=== PATIENT | male | born 1960 | race Caucasian/White ===

== ENCOUNTER 2016-03-10 15:57 | Emergency (ER) | payer OTHER ==
[~2016-03-10] VITALS: Ht 182.9 cm; Wt 69.6 kg
[~2016-03-10 15:57] MED LIST: ABILIFY2 MG PO; ALEVE220 M2 PO; ALEVE220 MG PO; AMLODIPINE BES2.5 MG PO; ASCORBIC ACID100 MG PO; AUGMENTIN875 MG PO; B-123000 MCG PO; BACTRIM,SEPT1 TABLET PO; BENICAR40 MG PO; BUPROPION XL300 MG PO; BUSPAR15 MG PO; BUSPAR5 MG PO; CARDIZEM CD,CA120 MG PO; CARDIZEM CD120 MG PO; CARDIZEM120 MG PO; CARDIZEM60 MG PO; CHLORDIAZEPOXID25 MG PO; CIALIS10 MG PO; CIPRO500 MG PO; CLEOCIN300 MG PO; CLONAZEPAM0.5 MG PO; CYANOCOBALAM1000 MCG PO; DAILY VITAMIN1 EAC8 PO; DAILY VITE1 EAC1 PO; DEXILANT60 MG PO; DIAZEPAM5 MG PO; DILAUDID1 MG/ML IV; DILAUDID2 MG PO; DOLOPHINE HCL10 MG PO; DOXAZOSIN MESYLA1 MG PO; DURAGESIC12 MCG TD; FAMOTIDINE40 MG PO; FENTANYL1 EAC1 TD; FLAGYL500 MG PO; FLOMAX0.4 MG PO; FOLIC ACID1 MG PO; Folvite PO; GLUCOPHAGE1000 MG PO; GLUCOPHAGE500 MG PO; GLUCOPHAGE850 MG PO; Glucophage PO; HARVONI 90-4001 EACH PO; HEPARIN SO5000 UNITS SC; HYDROCHLOROTHIA25 MG; Habitrol,Nicoderm CQ TD; KEFLEX500 MG PO; LANTUS 10100 UNITS/ SC; LANTUS 3 M100 UNITS1 SC; LISINOPRIL-HCT1 EAC3 PO; LISINOPRIL2.5 MG PO; LISINOPRIL20 MG PO; MELOXICAM15 MG PO; METFORMIN HCL500 MG PO; METFORMIN HCL850 MG PO; METHADONE10 MG PO; MIRALAX17 GM PO; MULTI VITAMIN1 EACH PO; MULTI-VITAMIN; MULTIVITAMIN; MULTIVITAMIN1 EAC2 PO; NICORELIEF2 MG BC; NICOTINE PATCH1 EAC2 TD; NOVOLOG 10100 UNITS/ SC; NOVOLOG PE100 UNITS/ SC; Norvasc PO; OMEPRAZOLE40 M1 PO; ONDANSETRON4 MG/2 ML IV; OXYCODONE HCL10 MG PO; OXYCODONE HCL15 MG PO; OXYCODONE HCL5 MG PO; OXYCODONE10 MG; OXYCONTIN10 MG PO; OXYCONTIN15 MG PO; PANCRELIPASE 51 EACH PO; PERCOCET 5/31 TABLET PO; PREDNISONE50 MG PO; PRILOSEC40 MG PO; PROTONIX IV40 MG IV; PROTONIX40 MG PO; PROVENTIL,2.5 MG/3 M IH; Prevacid PO; Proventil,Ventolin H IH; ROXICODONE5 MG PO; SERTRALINE HCL50 MG PO; SILVADENE20 GM TP; SOMA350 MG PO; SUCRALFATE1 GM/10 ML PO; SYMBICORT60 INHALAT IH; TRAZODONE HCL50 MG PO; Thiamine,Vitamin B1 PO; ULTRAM50 MG PO; VALIUM5 MG PO; VENTOLIN HFA18 GM IH; VIAGRA100 MG PO; VICODIN 5-3001 EACH PO; VIOKACE 10,4401 EACH PO; VIOKACE 20,8801 EACH PO; VITAMIN B-1100 MG PO; VOLTAREN75 MG PO; WELLBUTRIN XL150 MG PO; ZANTAC150 MG PO; ZENPEP DR 20,01 EACH PO; ZESTRIL,PRINIVI40 MG PO; ZESTRIL20 MG PO; ZOFRAN ODT4 MG PO; ZOFRAN4 MG PO; ZOLPIDEM TARTRAT5 MG PO; ZYRTEC10 M2 PO; [UNRECOGNIZED DRUG - OTHER] PO; oxyCODONE PO
[2016-03-10 17:02] LABS: HEMATOCRIT 38.7 % (38.0-50.0); MCH 29.7 PG (29.0-34.0); MCHC 34.9 G/DL (30.0-36.0); MCV 85.2 FL (86-99); MEAN PLAT.VOLUME 9.7 uM^3 (9.0-12.4); PLATELET COUNT 263 K/uL (156-360); RBC DIS.WIDTH-SD 42.4 % (39-53); RED BLOOD COUNT 4.54 M/uL (4.00-5.50); WHITE BLOOD COUNT 10.2 K/uL (4.1-10.2)
[2016-03-10 17:10] LABS: CHLORIDE 101 mEq/L (99-109); POTASSIUM 4.6 mEq/L (3.7-5.4); SODIUM 133 mEq/L (136-147)
[2016-03-10 17:14] LABS: ANION GAP 10 MEQ/L (2-14); GLUCOSE 414 mg/dL (70-99)
[2016-03-10 17:15] LABS: TOTAL BILIRUBIN 0.3 mg/dL (0.0-1.0)
[2016-03-10 17:16] LABS: ALKALINE PHOSPHATASE 189 IU/L (3-129); GFR ESTIMATE (CALCULATED) > 59 mL/min/
[2016-03-10 17:17] LABS: UREA NITROGEN (BUN) 12 mg/dL (9-23)
[2016-03-10 21:40] LABS: POINT-OF-CARE METER ID UU13113702
[2016-03-10 21:46] LABS: ADD MIUA? YES; BILIRUBIN NEGATIVE; BLOOD NEGATIVE; COLOR YELLOW ((YELLOW)); GLUCOSE (STRIP) >=1000; KETONES NEGATIVE; LEUKOCYTES NEGATIVE; NITRITE NEGATIVE; PROTEIN (STRIP) 100; SPECIFIC GRAVITY 1.032 (1.000-1.030); UROBILINOGEN 0.2 MG/DL (0.2-1.0)
[2016-03-10 22:49] LABS: LIPASE 7 U/L (1.0-51.0)
[2016-03-10 22:49] LABS: BACTERIA NONE SEEN; CASTS NONE SEEN /LPF; CRYSTALS NONE SEEN; EPITHELIAL CELLS NONE SEEN; MUCUS NONE SEEN; RED BLOOD CELLS 0-5 /HPF (0-5); UCUL ADDED? NO; WHITE BLOOD CELLS 0-5 /HPF (0-5)
[2016-03-11] MEDS ORDERED: PERCOCET 5/31 TABLET PO (00:13)
[2016-03-11] MEDS ORDERED: REGLAN10 MG PO (00:13)
[2016-03-11 00:39] VITALS: BP 142/74
== END 2016-03-11 00:56 | disposition home or self-care (01) ==
LOC: EME 15:57
PROVIDERS: Emergency Medicine
DX: R10.10 Upper abdominal pain, unspecified (principal); G89.4 Chronic pain syndrome; J44.9 Chronic obstructive pulmonary disease, unspecified; I10 Essential (primary) hypertension; F17.200 Nicotine dependence, unspecified, uncomplicated
CPT/HCPCS: 71020; 74176; 80053; 81003; 82948; 83605; 83690; 85027; 99281; 99285; C9113; J2270; J2765; J7030

== ENCOUNTER 2016-10-16 16:56 | Emergency (ER) | payer OTHER ==
[~2016-10-16] VITALS: Ht 182.9 cm; Wt 71.3 kg
[~2016-10-16 16:56] MED LIST changes: +REGLAN10 MG PO
[2016-10-16] MEDS ORDERED: VALIUM5 MG PO (18:14)
[2016-10-16] MEDS ORDERED: PREDNISONE20 MG PO (18:14)
[2016-10-16] MEDS ORDERED: LIDODERM 5% P1 PATCH TD (18:14)
[2016-10-16] MEDS ORDERED: ULTRAM50 MG PO (18:14)
[2016-10-16 18:42] VITALS: BP 201/96
== END 2016-10-16 18:44 | disposition home or self-care (01) ==
LOC: EME 16:56
DX: S39.012A Strain of muscle, fascia and tendon of lower back, initial encounter (principal); M54.32 Sciatica, left side; M54.31 Sciatica, right side; G89.29 Other chronic pain; X50.3XXA Overexertion from repetitive movements, initial encounter; Y93.89 Activity, other specified; Y99.0 Civilian activity done for income or pay; J44.9 Chronic obstructive pulmonary disease, unspecified; I10 Essential (primary) hypertension; E11.9 Type 2 diabetes mellitus without complications; F17.200 Nicotine dependence, unspecified, uncomplicated
CPT/HCPCS: 99281; 99284; J3010; J7512

== ENCOUNTER 2016-11-06 17:00 | Inpatient (IN) | payer OTHER ==
[~2016-11-06] VITALS: Ht 182.9 cm; Wt 75.1 kg
[~2016-11-06 17:00] MED LIST changes: +LIDODERM 5% P1 PATCH TD; +PREDNISONE20 MG PO; -ZESTRIL20 MG PO; +ZESTRIL40 MG PO
[2016-11-06 17:56] LABS: HEMATOCRIT 37.7 % (38.0-50.0); MCH 30.1 PG (29.0-34.0); MCHC 33.7 G/DL (30.0-36.0); MCV 89.3 FL (86-99); MEAN PLAT.VOLUME 9.2 uM^3 (9.0-12.4); PLATELET COUNT 283 K/uL (156-360); RBC DIS.WIDTH-CV 14.2 % (11.8-14.6); RBC DIS.WIDTH-SD 46.7 % (39-53); RED BLOOD COUNT 4.22 M/uL (4.00-5.50); WHITE BLOOD COUNT 10.6 K/uL (4.1-10.2)
[2016-11-06 17:59] LABS: ADD MIUA? YES; BILIRUBIN NEGATIVE; BLOOD SMALL; COLOR STRAW ((YELLOW)); GLUCOSE (STRIP) >=500; KETONES NEGATIVE; LEUKOCYTES NEGATIVE; NITRITE NEGATIVE; PROTEIN (STRIP) 30; SPECIFIC GRAVITY 1.006 (1.000-1.030); UROBILINOGEN 0.2 MG/DL (0.2-1.0)
[2016-11-06 18:01] LABS: BACTERIA NONE SEEN /HPF; EPITHELIAL CELLS NONE SEEN /HPF; MUCUS NONE SEEN /LPF; RED BLOOD CELLS 0-5 /HPF (0-5); UCUL ADDED? NO; WHITE BLOOD CELLS 0-5 /HPF (0-5)
[2016-11-06 18:04] LABS: CHLORIDE 103 mEq/L (99-109); POTASSIUM 4.9 mEq/L (3.7-5.4); SODIUM 138 mEq/L (136-147)
[2016-11-06 18:06] LABS: GLUCOSE 250 mg/dL (70-99)
[2016-11-06 18:08] LABS: ANION GAP 13 MEQ/L (2-14); TOTAL BILIRUBIN 0.3 mg/dL (0.0-1.0)
[2016-11-06 18:10] LABS: ALKALINE PHOSPHATASE 206 IU/L (3-129); GFR ESTIMATE (CALCULATED) > 59 mL/min/
[2016-11-06 18:11] LABS: UREA NITROGEN (BUN) 12 mg/dL (9-23)
[2016-11-06 18:13] LABS: LIPASE 12 U/L (1.0-51.0)
[2016-11-06 18:20] LABS: TROP-I INTERPRETATION NEGATIVE; TROPONIN-I < 0.01 ng/mL (0.0-0.30)
[2016-11-06 18:24] LABS: AMYLASE 41 IU/L (1-118)
[2016-11-06 20:58] LABS: SERUM ETHYL ALCOHOL 53 mg/dL
[2016-11-06 21:11] LABS: MAGNESIUM 2.2 mg/dL (1.3-2.7)
[2016-11-06 22:26] VITALS: BP 171/92
[2016-11-06 22:42] LABS: AMPHETAMINES QUANT VALUE 0 NG/ML; BARBITUATES QUANT VALUE 0 NG/ML; BENZODIAZEPINES QUANT VALUE 0 NG/ML; BENZODIAZEPINES, URINE SCREEN Negative (200 ng/mL); MARIJUANA QUANT VALUE 0 NG/ML; PHENCYCLIDINE QUANT VALUE 0 NG/ML
[2016-11-07] VITALS: BP 164/82
[2016-11-07 01:18] LABS: METH RESISTANT S AUREUS PCR NEGATIVE (NEGATIVE)
[2016-11-07 01:19] LABS: PROBE CHECK PASS; SPECIMEN PROCESSING CONTROL PASS
[2016-11-07 01:26] LABS: MCV 89.6 FL (86-99)
[2016-11-07 04:00] VITALS: BP 161/90
[2016-11-07 06:21] LABS: ALKALINE PHOSPHATASE 182 IU/L (3-129); ANION GAP 8 MEQ/L (2-14); CHLORIDE 107 MEQ/L (99-109); GFR ESTIMATE (CALCULATED) > 59 mL/min/; LIPASE 4 U/L (1.0-51.0); POTASSIUM 4.7 MEQ/L (3.7-5.4); SAMPLE HEMOLYSIS CHECK 0; SAMPLE ICTERIC CHECK 0; SAMPLE LIPEMIA CHECK 0; SODIUM 141 MEQ/L (136-147); TOTAL BILIRUBIN 0.5 MG/DL (0.0-1.0); UREA NITROGEN (BUN) 11 mg/dL (9-23)
[2016-11-07 06:25] LABS: GLUCOSE 88 mg/dL (70-99)
[2016-11-07 06:27] LABS: POINT-OF-CARE METER ID UU14162513
[2016-11-07 07:27] VITALS: BP 164/82
[2016-11-07 08:27] LABS: Estimated Average Glucose 151 mg/dL (70-123); HEMOGLOBIN A1c (GLYCOHEMOGLOB) 6.9 % HGB (Below 5.7)
[2016-11-07 12:16] LABS: POINT-OF-CARE METER ID UU14162513
[2016-11-07 12:29] LABS: MCV 90.5 FL (86-99)
[2016-11-07 12:53] VITALS: BP 147/76
[2016-11-07 15:18] VITALS: BP 177/87
[2016-11-07 16:54] LABS: POINT-OF-CARE METER ID UU14162513
[2016-11-07 17:20] LABS: POINT-OF-CARE METER ID UU13113831
[2016-11-07 19:23] LABS: POINT-OF-CARE METER ID UU14162513
[2016-11-07 20:14] VITALS: BP 194/90
[2016-11-08 01:04] LABS: POINT-OF-CARE METER ID UU14162513
[2016-11-08 05:52] LABS: EOSINOPHIL (%) 1.4 % (0-5); EOSINOPHIL COUNT 0.1 K/uL (0-0.3); HEMATOCRIT 34.7 % (38.0-50.0); IMMATURE GRANULOCYTE (%) 0.5 % (0.0-0.7); INSTRUMENT ABS NEUTROPHIL CT 5.9 K/uL; LYMPHOCYTE COUNT 2.2 K/uL (1.0-2.8); MCH 30.4 PG (29.0-34.0); MCHC 33.4 G/DL (30.0-36.0); MCV 90.8 FL (86-99); MEAN PLAT.VOLUME 9.6 uM^3 (9.0-12.4); MONOCYTE (%) 6.3 % (3-12); MONOCYTE COUNT 0.6 K/uL (0-0.8); NEUTROPHIL (%) 66.4 % (45-76); NEUTROPHIL COUNT 5.9 K/uL (1.8-6.4); PLATELET COUNT 232 K/uL (156-360); RBC DIS.WIDTH-CV 13.9 % (11.8-14.6); RBC DIS.WIDTH-SD 46.5 % (39-53); RED BLOOD COUNT 3.82 M/uL (4.00-5.50); WHITE BLOOD COUNT 8.8 K/uL (4.1-10.2)
[2016-11-08 06:44] LABS: ALKALINE PHOSPHATASE 167 IU/L (3-129); ANION GAP 8 MEQ/L (2-14); CHLORIDE 104 MEQ/L (99-109); GFR ESTIMATE (CALCULATED) > 59 mL/min/; POTASSIUM 4.1 MEQ/L (3.7-5.4); SAMPLE HEMOLYSIS CHECK 0; SAMPLE ICTERIC CHECK 0; SAMPLE LIPEMIA CHECK 0; SODIUM 138 MEQ/L (136-147); UREA NITROGEN (BUN) 12 mg/dL (9-23)
[2016-11-08 06:49] LABS: GLUCOSE 118 mg/dL (70-99)
[2016-11-08 06:50] LABS: TOTAL BILIRUBIN 0.3 MG/DL (0.0-1.0)
[2016-11-08 07:45] VITALS: BP 187/84
[2016-11-08] MEDS ORDERED: METHADONE10 MG PO (11:04)
[2016-11-08] MEDS ORDERED: OXYCODONE HCL5 MG PO (11:04)
[2016-11-08] MEDS ORDERED: NORVASC5 MG PO (12:00)
[2016-11-08 12:54] VITALS: BP 191/86
[2016-11-08 15:57] VITALS: BP 181/86
[2016-11-08 16:49] VITALS: BP 190/87
[2016-11-08 16:57] LABS: POINT-OF-CARE METER ID UU14162513
[2016-11-08 17:56] VITALS: BP 179/85
[2016-11-08 20:00] VITALS: BP 180/81
[2016-11-08 22:35] LABS: POINT-OF-CARE METER ID UU13113831
[2016-11-09] VITALS: BP 135/67
[2016-11-09 00:25] LABS: POINT-OF-CARE METER ID UU13113831
[2016-11-09 04:00] VITALS: BP 132/69
[2016-11-09 04:44] LABS: POINT-OF-CARE METER ID UU13113831
[2016-11-09 07:10] VITALS: BP 152/74
[2016-11-09 08:48] LABS: POINT-OF-CARE METER ID UU13113831
[2016-11-09 10:41] VITALS: BP 143/69
[2016-11-09 12:27] LABS: POINT-OF-CARE METER ID UU13113831
[2016-11-09 20:37] LABS: POINT-OF-CARE METER ID UU14162513
[2016-11-09 20:37] LABS: POINT-OF-CARE METER ID UU14162513
[2016-11-09 20:37] LABS: POINT-OF-CARE METER ID UU14162513
[2016-11-09 20:45] LABS: POINT-OF-CARE METER ID UU14162513
== END 2016-11-09 13:33 | disposition home or self-care (01) | DRG 439 ==
LOC: EME 17:00 → EDOF 20:39 → 5WEST 20:39 → ENRESERV 20:42 → 5WEST 22:18
PROVIDERS: Hospitalist; Internal Medicine; Physician Assistant Medical
DX: K85.20 Alcohol induced acute pancreatitis without necrosis or infection (principal); K86.0 Alcohol-induced chronic pancreatitis; K92.0 Hematemesis; K92.1 Melena; D50.9 Iron deficiency anemia, unspecified; F10.20 Alcohol dependence, uncomplicated; Y90.2 Blood alcohol level of 40-59 mg/100 ml; E11.65 Type 2 diabetes mellitus with hyperglycemia; I16.0 Hypertensive urgency; I10 Essential (primary) hypertension; T38.0X5A Adverse effect of glucocorticoids and synthetic analogues, initial encounter; R13.10 Dysphagia, unspecified; K21.9 Gastro-esophageal reflux disease without esophagitis; K29.70 Gastritis, unspecified, without bleeding; K59.00 Constipation, unspecified; K74.60 Unspecified cirrhosis of liver; M54.40 Lumbago with sciatica, unspecified side; G89.29 Other chronic pain; E78.5 Hyperlipidemia, unspecified; H93.19 Tinnitus, unspecified ear; F17.200 Nicotine dependence, unspecified, uncomplicated; J44.9 Chronic obstructive pulmonary disease, unspecified; F32.9 Major depressive disorder, single episode, unspecified; F41.9 Anxiety disorder, unspecified; Z79.4 Long term (current) use of insulin; Z79.51 Long term (current) use of inhaled steroids; Z82.3 Family history of stroke; Z82.49 Family history of ischemic heart disease and other diseases of the circulatory system; Z83.3 Family history of diabetes mellitus; Z90.411 Acquired partial absence of pancreas
CPT/HCPCS: 74177; 80053; 80306 90; 81003; 82150; 82948; 83036; 83690; 83735; 84484; 85014; 85018; 85025; 85027; 87641; 93005; 99202; 99281; 99285; C9113; G0378; G0480; J0360; J1170; J1815; J2270; J2405; J3010; J7030; J7120

== ENCOUNTER 2016-11-14 10:21 | Inpatient (IN) | payer OTHER ==
[~2016-11-14] VITALS: Ht 182.9 cm; Wt 74.4 kg
[~2016-11-14 10:21] MED LIST changes: +NORVASC5 MG PO; +ZESTRIL20 MG PO; -ZESTRIL40 MG PO
[2016-11-14 11:10] LABS: HEMATOCRIT 38.1 % (38.0-50.0); MCH 29.2 PG (29.0-34.0); MCHC 32.5 G/DL (30.0-36.0); MCV 89.9 FL (86-99); MEAN PLAT.VOLUME 9.3 uM^3 (9.0-12.4); RBC DIS.WIDTH-CV 13.8 % (11.8-14.6); RBC DIS.WIDTH-SD 45.5 % (39-53); RED BLOOD COUNT 4.24 M/uL (4.00-5.50); WHITE BLOOD COUNT 10.6 K/uL (4.1-10.2)
[2016-11-14 11:11] LABS: PLATELET COUNT 339 K/uL (156-360)
[2016-11-14 11:18] LABS: CHLORIDE 107 mEq/L (99-109); SODIUM 139 mEq/L (136-147)
[2016-11-14 11:20] LABS: GLUCOSE 215 mg/dL (70-99)
[2016-11-14 11:21] LABS: ANION GAP 10 MEQ/L (2-14)
[2016-11-14 11:24] LABS: GFR ESTIMATE (CALCULATED) > 59 mL/min/
[2016-11-14 11:25] LABS: UREA NITROGEN (BUN) 19 mg/dL (9-23)
[2016-11-14 12:00] LABS: POINT-OF-CARE METER ID UU14100415
[2016-11-14 12:33] LABS: TOTAL BILIRUBIN 0.2 mg/dL (0.0-1.0)
[2016-11-14 12:34] LABS: SERUM ETHYL ALCOHOL < 10 mg/dL
[2016-11-14 12:35] LABS: ALKALINE PHOSPHATASE 189 IU/L (3-129)
[2016-11-14 12:37] LABS: DIRECT BILIRUBIN 0.1 mg/dL (0.0-0.3)
[2016-11-14 12:38] LABS: LIPASE 6 U/L (1.0-51.0)
[2016-11-14] MEDS ORDERED: DOLOPHINE HCL10 MG PO (13:40)
[2016-11-14 16:43] VITALS: BP 181/90
[2016-11-14 17:12] LABS: POINT-OF-CARE METER ID UU14188625
[2016-11-14 17:31] LABS: POINT-OF-CARE METER ID UU14188625
[2016-11-14 19:26] VITALS: BP 123/59
[2016-11-14 19:42] LABS: HEMATOCRIT 35.9 % (38.0-50.0); MCV 90.4 FL (86-99)
[2016-11-14 19:54] VITALS: BP 166/76
[2016-11-14 23:44] VITALS: BP 164/74
[2016-11-15 04:07] VITALS: BP 144/76
[2016-11-15 05:48] LABS: POINT-OF-CARE METER ID UU14188625
[2016-11-15 07:29] LABS: METH RESISTANT S AUREUS PCR NEGATIVE (NEGATIVE)
[2016-11-15 07:31] LABS: PROBE CHECK PASS; SPECIMEN PROCESSING CONTROL PASS
[2016-11-15 08:00] LABS: HEMATOCRIT 34.9 % (38.0-50.0); HEMATOLOGY COMMENT 1 SN; MCH 30.8 PG (29.0-34.0); MCHC 33.8 G/DL (30.0-36.0); MCV 91.1 FL (86-99); MEAN PLAT.VOLUME 9.3 uM^3 (9.0-12.4); PLAT.SUFFICIENCY ADEQUATE; RBC DIS.WIDTH-SD 46.5 % (39-53); RED BLOOD COUNT 3.83 M/uL (4.00-5.50); WHITE BLOOD COUNT 7.3 K/uL (4.1-10.2)
[2016-11-15 08:02] LABS: PLATELET COUNT 229 K/uL (156-360)
[2016-11-15 08:53] VITALS: BP 154/73
[2016-11-15 09:55] LABS: ALKALINE PHOSPHATASE 150 IU/L (3-129); ANION GAP 9 MEQ/L (2-14); CHLORIDE 113 MEQ/L (99-109); GFR ESTIMATE (CALCULATED) > 59 mL/min/; GLUCOSE 115 mg/dL (70-99); LIPASE < 3.0 U/L (1.0-51.0); POTASSIUM 4.3 MEQ/L (3.7-5.4); SAMPLE HEMOLYSIS CHECK 0; SAMPLE ICTERIC CHECK 0; SAMPLE LIPEMIA CHECK 0; SODIUM 144 MEQ/L (136-147); TOTAL BILIRUBIN 0.4 MG/DL (0.0-1.0); UREA NITROGEN (BUN) 8 mg/dL (9-23)
[2016-11-15 11:54] LABS: POINT-OF-CARE METER ID UU13113675
[2016-11-15 12:58] LABS: POINT-OF-CARE METER ID UU13113717
[2016-11-15 15:41] VITALS: BP 140/74
[2016-11-15 17:10] LABS: POINT-OF-CARE METER ID UU13113717
[2016-11-15 21:57] LABS: POINT-OF-CARE METER ID UU14188625
[2016-11-16 06:30] LABS: HEMATOCRIT 34.4 % (38.0-50.0); MCH 31.2 PG (29.0-34.0); MCHC 34.6 G/DL (30.0-36.0); MCV 90.1 FL (86-99); MEAN PLAT.VOLUME 9.6 uM^3 (9.0-12.4); PLATELET COUNT 238 K/uL (156-360); RBC DIS.WIDTH-CV 13.7 % (11.8-14.6); RBC DIS.WIDTH-SD 44.8 % (39-53); RED BLOOD COUNT 3.82 M/uL (4.00-5.50); WHITE BLOOD COUNT 7.4 K/uL (4.1-10.2)
[2016-11-16 06:50] LABS: ANION GAP 9 MEQ/L (2-14); CHLORIDE 109 MEQ/L (99-109); GFR ESTIMATE (CALCULATED) > 59 mL/min/; GLUCOSE 111 mg/dL (70-99); POTASSIUM 4.4 MEQ/L (3.7-5.4); SAMPLE HEMOLYSIS CHECK 0; SAMPLE ICTERIC CHECK 0; SAMPLE LIPEMIA CHECK 0; SODIUM 143 MEQ/L (136-147); UREA NITROGEN (BUN) 7 mg/dL (9-23)
[2016-11-16 09:27] VITALS: BP 164/83
[2016-11-16 13:31] LABS: POINT-OF-CARE METER ID UU13113717
[2016-11-16] MEDS ORDERED: DOLOPHINE HCL10 MG PO (14:15)
[2016-11-16] MEDS ORDERED: OXYCODONE HCL10 MG PO (14:15)
[2016-11-16] MEDS ORDERED: ZOFRAN4 MG PO (14:16)
[2016-11-16 14:59] LABS: POINT-OF-CARE METER ID UU13113717
[2016-11-16 17:43] LABS: POINT-OF-CARE METER ID UU14188625
== END 2016-11-16 14:54 | disposition home or self-care (01) | DRG 391 ==
LOC: EME 10:21 → EDOF 13:40 → 5SOUTH 13:40 → CANRESERV 13:41 → ENRESERV 13:41 → 5SOUTH 16:21
PROVIDERS: Hospitalist; Internal Medicine Gastroenterology; Physician Assistant
DX: K29.60 Other gastritis without bleeding (principal); K85.90 Acute pancreatitis without necrosis or infection, unspecified; K86.1 Other chronic pancreatitis; K74.60 Unspecified cirrhosis of liver; K86.3 Pseudocyst of pancreas; J44.9 Chronic obstructive pulmonary disease, unspecified; B19.20 Unspecified viral hepatitis C without hepatic coma; I10 Essential (primary) hypertension; K52.9 Noninfective gastroenteritis and colitis, unspecified; E11.9 Type 2 diabetes mellitus without complications; E78.5 Hyperlipidemia, unspecified; F10.10 Alcohol abuse, uncomplicated; K21.9 Gastro-esophageal reflux disease without esophagitis; K27.9 Peptic ulcer, site unspecified, unspecified as acute or chronic, without hemorrhage or perforation; G89.29 Other chronic pain; F17.200 Nicotine dependence, unspecified, uncomplicated; Z86.73 Personal history of transient ischemic attack (TIA), and cerebral infarction without residual deficits; Z90.411 Acquired partial absence of pancreas; Z79.51 Long term (current) use of inhaled steroids; Z79.899 Other long term (current) drug therapy; Z82.3 Family history of stroke; Z82.49 Family history of ischemic heart disease and other diseases of the circulatory system; Z83.3 Family history of diabetes mellitus
CPT/HCPCS: 74177; 80048; 80053; 80069; 80076; 82948; 83605; 83690; 85014; 85018; 85027; 86850; 86900; 86901; 87641; 88305; 88342 TC; 90686; 94640; 94640 76; 99202; 99281; 99285; C9113; G0480; J1815; J2270; J2405; J3010; J3411; J7030; J7050; J7120

== ENCOUNTER 2016-11-30 18:28 | Inpatient (IN) | payer OTHER ==
[~2016-11-30] VITALS: Ht 182.9 cm; Wt 70.7 kg
[2016-11-30 19:12] LABS: HEMATOCRIT 40.8 % (38.0-50.0); MCH 30.1 PG (29.0-34.0); MCHC 34.3 G/DL (30.0-36.0); MCV 87.7 FL (86-99); MEAN PLAT.VOLUME 9.8 uM^3 (9.0-12.4); PLATELET COUNT 325 K/uL (156-360); RBC DIS.WIDTH-CV 13.3 % (11.8-14.6); RED BLOOD COUNT 4.65 M/uL (4.00-5.50); WHITE BLOOD COUNT 19.6 K/uL (4.1-10.2)
[2016-11-30 19:21] LABS: CHLORIDE 101 mEq/L (99-109); POTASSIUM 4.9 mEq/L (3.7-5.4); SODIUM 132 mEq/L (136-147)
[2016-11-30 19:22] LABS: AMYLASE 39 IU/L (1-118)
[2016-11-30 19:22] LABS: ADD MIUA? NO; BILIRUBIN NEGATIVE; BLOOD NEGATIVE; COLOR YELLOW ((YELLOW)); GLUCOSE (STRIP) >=500; KETONES NEGATIVE; LEUKOCYTES NEGATIVE; NITRITE NEGATIVE; PROTEIN (STRIP) 30; SPECIFIC GRAVITY 1.026 (1.000-1.030); UROBILINOGEN 0.2 MG/DL (0.2-1.0)
[2016-11-30 19:24] LABS: GLUCOSE 390 mg/dL (70-99)
[2016-11-30 19:25] LABS: ANION GAP 8 MEQ/L (2-14); TOTAL BILIRUBIN 0.4 mg/dL (0.0-1.0)
[2016-11-30 19:27] LABS: ALKALINE PHOSPHATASE 165 IU/L (3-129); GFR ESTIMATE (CALCULATED) > 59 mL/min/
[2016-11-30 19:28] LABS: UREA NITROGEN (BUN) 18 mg/dL (9-23)
[2016-11-30 19:31] LABS: LIPASE 14 U/L (1.0-51.0)
[2016-11-30 20:28] LABS: SERUM ETHYL ALCOHOL < 10 mg/dL
[2016-11-30 20:57] LABS: BASOPHIL COUNT 0.1 K/uL (0-0.1); EOSINOPHIL (%) 0.4 % (0-5); EOSINOPHIL COUNT 0.1 K/uL (0-0.3); IMMATURE GRANULOCYTE (%) 0.5 % (0.0-0.7); IMMATURE GRANULOCYTE COUNT 0.1 K/uL; INSTRUMENT ABS NEUTROPHIL CT 15.6 K/uL; LYMPHOCYTE COUNT 2.8 K/uL (1.0-2.8); MONOCYTE (%) 5.2 % (3-12); NEUTROPHIL (%) 79.2 % (45-76); NEUTROPHIL COUNT 15.6 K/uL (1.8-6.4)
[2016-11-30 21:11] LABS: AMPHETAMINE NEGATIVE (500 ng/mL); BARBITURATES NEGATIVE (200 ng/mL); BENZODIAZEPINES NEGATIVE (150 ng/mL); COCAINE PRESUMPTIVE POSITIVE (150 ng/mL); METHADONE PRESUMPTIVE POSITIVE (200 ng/mL); METHAMPHETAMINE NEGATIVE (500 ng/mL); OPIATES (MORPHINE) PRESUMPTIVE POSITIVE (100 ng/mL); OXYCODONE PRESUMPTIVE POSITIVE (100 ng/mL); PHENCYCLIDINE NEGATIVE (25 ng/mL); THC CANNABINOIDS NEGATIVE (50 ng/mL); TRICYCLIC ANTIDEPRESSANTS NEGATIVE (300 ng/mL)
[2016-11-30 21:12] LABS: ADD MEDTOX COMMENT Y; INTERNAL CONTROLS VALID? YES; PROPOXYPHENE NEGATIVE (300 ng/mL)
[2016-12-01 00:47] VITALS: BP 154/99
[2016-12-01 05:51] LABS: BASOPHIL COUNT 0.1 K/uL (0-0.1); EOSINOPHIL COUNT 0.1 K/uL (0-0.3); HEMATOCRIT 36.3 % (38.0-50.0); IMMATURE GRANULOCYTE (%) 0.4 % (0.0-0.7); IMMATURE GRANULOCYTE COUNT 0.1 K/uL; INSTRUMENT ABS NEUTROPHIL CT 9.7 K/uL; LYMPHOCYTE COUNT 2.9 K/uL (1.0-2.8); MCH 30.6 PG (29.0-34.0); MCHC 34.4 G/DL (30.0-36.0); MEAN PLAT.VOLUME 10.2 uM^3 (9.0-12.4); MONOCYTE (%) 5.2 % (3-12); MONOCYTE COUNT 0.7 K/uL (0-0.8); NEUTROPHIL (%) 71.6 % (45-76); NEUTROPHIL COUNT 9.7 K/uL (1.8-6.4); PLATELET COUNT 231 K/uL (156-360); RBC DIS.WIDTH-CV 13.2 % (11.8-14.6); RBC DIS.WIDTH-SD 43.8 % (39-53); RED BLOOD COUNT 4.08 M/uL (4.00-5.50); WHITE BLOOD COUNT 13.6 K/uL (4.1-10.2)
[2016-12-01 06:11] LABS: ANION GAP 7 MEQ/L (2-14); CHLORIDE 109 MEQ/L (99-109); GFR ESTIMATE (CALCULATED) > 59 mL/min/; GLUCOSE 196 mg/dL (70-99); POTASSIUM 4.7 MEQ/L (3.7-5.4); SAMPLE HEMOLYSIS CHECK 0; SAMPLE ICTERIC CHECK 0; SAMPLE LIPEMIA CHECK 0; SODIUM 136 MEQ/L (136-147); UREA NITROGEN (BUN) 15 mg/dL (9-23)
[2016-12-01 07:46] VITALS: BP 161/75
[2016-12-01 12:28] VITALS: BP 153/74
[2016-12-01 12:53] LABS: POINT-OF-CARE METER ID UU14162513
[2016-12-01] MEDS ORDERED: NORVASC5 MG PO (12:53)
[2016-12-01] MEDS ORDERED: CARDIZEM120 MG PO (12:54)
[2016-12-01] MEDS ORDERED: ZESTRIL40 MG PO (12:54)
[2016-12-01] MEDS ORDERED: DOLOPHINE HCL5 MG PO (12:55)
[2016-12-01] MEDS ORDERED: BUSPAR10 MG PO (12:56)
[2016-12-01] MEDS ORDERED: MOBIC15 MG PO (12:59)
[2016-12-01] MEDS ORDERED: VOLTAREN50 MG PO (12:59)
[2016-12-01] MEDS ORDERED: HYDROCHLOROTHIA25 MG PO (13:00)
[2016-12-01 13:28] LABS: INTERNAL CONTROL VALID? YES
[2016-12-01 16:37] VITALS: BP 139/73
[2016-12-01 17:48] LABS: POINT-OF-CARE METER ID UU13113700
[2016-12-01 19:34] VITALS: BP 172/83
[2016-12-01 23:32] VITALS: BP 124/58
[2016-12-02 03:34] VITALS: BP 109/56
[2016-12-02 05:46] LABS: BASOPHIL COUNT 0.1 K/uL (0-0.1); EOSINOPHIL (%) 1.7 % (0-5); EOSINOPHIL COUNT 0.2 K/uL (0-0.3); HEMATOCRIT 35.9 % (38.0-50.0); IMMATURE GRANULOCYTE (%) 0.3 % (0.0-0.7); INSTRUMENT ABS NEUTROPHIL CT 5.1 K/uL; LYMPHOCYTE COUNT 2.7 K/uL (1.0-2.8); MCH 30.1 PG (29.0-34.0); MCHC 33.7 G/DL (30.0-36.0); MCV 89.3 FL (86-99); MEAN PLAT.VOLUME 10.1 uM^3 (9.0-12.4); MONOCYTE (%) 6.9 % (3-12); MONOCYTE COUNT 0.6 K/uL (0-0.8); NEUTROPHIL (%) 59.1 % (45-76); NEUTROPHIL COUNT 5.1 K/uL (1.8-6.4); PLATELET COUNT 232 K/uL (156-360); RBC DIS.WIDTH-CV 13.3 % (11.8-14.6); RBC DIS.WIDTH-SD 43.8 % (39-53); RED BLOOD COUNT 4.02 M/uL (4.00-5.50); WHITE BLOOD COUNT 8.7 K/uL (4.1-10.2)
[2016-12-02 06:08] LABS: ALKALINE PHOSPHATASE 140 IU/L (3-129); ANION GAP 6 MEQ/L (2-14); CHLORIDE 109 MEQ/L (99-109); GFR ESTIMATE (CALCULATED) > 59 mL/min/; GLUCOSE 195 mg/dL (70-99); POTASSIUM 4.2 MEQ/L (3.7-5.4); SAMPLE HEMOLYSIS CHECK 0; SAMPLE ICTERIC CHECK 0; SAMPLE LIPEMIA CHECK 0; SODIUM 142 MEQ/L (136-147); TOTAL BILIRUBIN 0.3 MG/DL (0.0-1.0); UREA NITROGEN (BUN) 6 mg/dL (9-23)
[2016-12-02 07:57] LABS: POINT-OF-CARE METER ID UU13113700
[2016-12-02 08:50] VITALS: BP 132/70
[2016-12-02 11:15] VITALS: BP 152/68
[2016-12-02 12:07] LABS: POINT-OF-CARE METER ID UU13113700
[2016-12-02 14:08] VITALS: BP 152/70
[2016-12-02] MEDS ORDERED: BENTYL20 MG PO (16:06)
[2016-12-02 17:20] VITALS: BP 137/70
[2016-12-02 18:25] LABS: POINT-OF-CARE METER ID UU13113700
[2016-12-02 19:45] VITALS: BP 137/70
[2016-12-02 21:28] LABS: POINT-OF-CARE METER ID UU14162513
[2016-12-03 00:06] VITALS: BP 130/63
[2016-12-03 03:43] VITALS: BP 126/58
[2016-12-03 07:40] VITALS: BP 158/74
[2016-12-03 08:36] LABS: POINT-OF-CARE METER ID UU13113831
[2016-12-03] MEDS ORDERED: BENTYL20 MG PO (11:13)
[2016-12-03 11:30] VITALS: BP 156/72
[2016-12-03 12:37] LABS: POINT-OF-CARE METER ID UU13113700
== END 2016-12-03 12:57 | disposition home or self-care (01) | DRG 392 ==
LOC: EME 18:28 → EDOF 23:12 → 5WEST 23:12 → ENRESERV 23:13 → 5WEST 12-01 00:32 → CANRESERV 12-01 13:57 → ENRESERV 12-01 13:57 → 5WEST 12-03 12:57
PROVIDERS: Hospitalist; Physician Assistant
PROC: 0DBB8ZX Excision of Ileum, Via Natural or Artificial Opening Endoscopic, Diagnostic (ICD-10-PCS; principal; 2016-12-02)
DX: K52.9 Noninfective gastroenteritis and colitis, unspecified (principal); E11.65 Type 2 diabetes mellitus with hyperglycemia; F14.10 Cocaine abuse, uncomplicated; F11.20 Opioid dependence, uncomplicated; J43.9 Emphysema, unspecified; K29.70 Gastritis, unspecified, without bleeding; K86.1 Other chronic pancreatitis; K86.3 Pseudocyst of pancreas; B19.20 Unspecified viral hepatitis C without hepatic coma; K74.60 Unspecified cirrhosis of liver; K76.0 Fatty (change of) liver, not elsewhere classified; F10.21 Alcohol dependence, in remission; K21.9 Gastro-esophageal reflux disease without esophagitis; G89.4 Chronic pain syndrome; M54.5 Low back pain; D64.9 Anemia, unspecified; I10 Essential (primary) hypertension; F17.210 Nicotine dependence, cigarettes, uncomplicated; F41.9 Anxiety disorder, unspecified; E78.5 Hyperlipidemia, unspecified; F32.9 Major depressive disorder, single episode, unspecified; Z79.51 Long term (current) use of inhaled steroids; Z82.3 Family history of stroke; Z82.49 Family history of ischemic heart disease and other diseases of the circulatory system; Z83.3 Family history of diabetes mellitus; Z90.411 Acquired partial absence of pancreas; Z86.73 Personal history of transient ischemic attack (TIA), and cerebral infarction without residual deficits
CPT/HCPCS: 74177; 80048; 80053; 81003; 82150; 82272; 82948; 83690; 84999; 85025; 85027; 88305; 94640; 94640 76; 99202; 99281; 99285; C9113; G0378; G0480; J1170; J1650; J1815; J1885; J2060; J2405; J2765; J3010; J3480; J7030; J7050

== ENCOUNTER 2016-12-15 19:25 | Emergency (ER) | payer OTHER ==
[~2016-12-15] VITALS: Ht 182.9 cm; Wt 69.8 kg
[~2016-12-15 19:25] MED LIST changes: +BENTYL20 MG PO; +BUSPAR10 MG PO; +DOLOPHINE HCL5 MG PO; +HYDROCHLOROTHIA25 MG PO; +MOBIC15 MG PO; +VOLTAREN50 MG PO; +ZESTRIL40 MG PO
[2016-12-15 19:57] LABS: POINT-OF-CARE METER ID UU13113778
[2016-12-15 20:11] LABS: HEMATOCRIT 41.6 % (38.0-50.0); MCH 30.2 PG (29.0-34.0); MCHC 34.4 G/DL (30.0-36.0); MCV 87.9 FL (86-99); MEAN PLAT.VOLUME 9.7 uM^3 (9.0-12.4); RBC DIS.WIDTH-CV 13.1 % (11.8-14.6); RBC DIS.WIDTH-SD 42.5 % (39-53); RED BLOOD COUNT 4.73 M/uL (4.00-5.50); WHITE BLOOD COUNT 12.1 K/uL (4.1-10.2)
[2016-12-15 20:12] LABS: PLATELET COUNT 355 K/uL (156-360)
[2016-12-15 20:23] LABS: CHLORIDE 105 mEq/L (99-109); POTASSIUM 4.6 mEq/L (3.7-5.4); SODIUM 134 mEq/L (136-147)
[2016-12-15 20:24] LABS: GLUCOSE 343 mg/dL (70-99)
[2016-12-15 20:26] LABS: ANION GAP 10 MEQ/L (2-14)
[2016-12-15 20:28] LABS: GFR ESTIMATE (CALCULATED) > 59 mL/min/
[2016-12-15 20:29] LABS: UREA NITROGEN (BUN) 18 mg/dL (9-23)
[2016-12-15 22:51] LABS: TOTAL BILIRUBIN 0.4 mg/dL (0.0-1.0)
[2016-12-15 22:52] LABS: ALKALINE PHOSPHATASE 276 IU/L (3-129)
[2016-12-15 22:56] LABS: DIRECT BILIRUBIN 0.2 mg/dL (0.0-0.3); LIPASE 14 U/L (1.0-51.0)
[2016-12-15 23:13] LABS: TROP-I INTERPRETATION NEGATIVE; TROPONIN-I < 0.01 ng/mL (0.0-0.30)
[2016-12-15 23:45] LABS: ADD MIUA? NO; BILIRUBIN NEGATIVE; BLOOD NEGATIVE; COLOR YELLOW ((YELLOW)); GLUCOSE (STRIP) >=500; KETONES NEGATIVE; LEUKOCYTES NEGATIVE; NITRITE NEGATIVE; PROTEIN (STRIP) 30; SPECIFIC GRAVITY 1.025 (1.000-1.030); UCUL ADDED? NO; UROBILINOGEN 0.2 MG/DL (0.2-1.0)
[2016-12-16] MEDS ORDERED: ZOFRAN ODT4 MG PO (01:23)
[2016-12-16] MEDS ORDERED: BENTYL20 MG PO (01:23)
[2016-12-16 01:47] VITALS: BP 151/90
== END 2016-12-16 01:50 | disposition home or self-care (01) ==
LOC: EME 19:25
DX: K86.1 Other chronic pancreatitis (principal); R74.0 Nonspecific elevation of levels of transaminase and lactic acid dehydrogenase [LDH]; E11.65 Type 2 diabetes mellitus with hyperglycemia; K21.9 Gastro-esophageal reflux disease without esophagitis; J44.9 Chronic obstructive pulmonary disease, unspecified; I10 Essential (primary) hypertension; F41.9 Anxiety disorder, unspecified; F32.9 Major depressive disorder, single episode, unspecified; Z79.4 Long term (current) use of insulin; Z86.73 Personal history of transient ischemic attack (TIA), and cerebral infarction without residual deficits; F17.200 Nicotine dependence, unspecified, uncomplicated
CPT/HCPCS: 74177; 80048; 80076; 81003; 82948; 83690; 84484; 85027; 93005; 99281; 99285; J1885; J2405; J7040